=== PATIENT | male | born 1985 ===

== ENCOUNTER 2018-12-08 18:42 | Emergency (ER) | payer MEDICAID ==
[~2018-12-08] VITALS: Ht 175.3 cm; Wt 68.0 kg
== END 2018-12-08 20:34 | disposition home or self-care (01) ==
LOC: ER 18:42
DX: S62.327A Displaced fracture of shaft of fifth metacarpal bone, left hand, initial encounter for closed fracture (principal); S62.325A Displaced fracture of shaft of fourth metacarpal bone, left hand, initial encounter for closed fracture; W01.198A Fall on same level from slipping, tripping and stumbling with subsequent striking against other object, initial encounter; F17.200 Nicotine dependence, unspecified, uncomplicated
CPT/HCPCS: 29125; 73130; 99283-25

== ENCOUNTER 2022-07-25 13:15 | Emergency (ER) | payer OTHER ==
[~2022-07-25] VITALS: Ht 177.8 cm; Wt 68.0 kg
[2022-07-25] MEDS ORDERED: MOTRIN IB200 MG PO (15:13)
== END 2022-07-25 15:19 | disposition home or self-care (01) ==
LOC: ER 13:15
DX: M54.42 Lumbago with sciatica, left side (principal); Z87.891 Personal history of nicotine dependence
CPT/HCPCS: 72100